=== PATIENT | female | born 1975 | race African-American/Black ===

== ENCOUNTER 2020-10-10 12:21 | Emergency (ER) | payer MEDICAID ==
[~2020-10-10] VITALS: Ht 165.1 cm; Wt 77.0 kg
[2020-10-10 12:33] VITALS: BP 141/88
[2020-10-10] MEDS ORDERED: ACET-2708 MT (13:36)
[2020-10-10] MEDS ORDERED: ALBU6.7H9 INH (13:36)
[2020-10-10] MEDS ORDERED: FLUT9.9S BOTHNSTRLS (13:39)
[2020-10-10] MEDS ORDERED: ACETAMINOPHEN 325MG TABLET PO ONE (13:45)
== END 2020-10-10 14:00 | disposition home or self-care (01) ==
LOC: ER 12:21
DX: H92.02 Otalgia, left ear (principal); J45.909 Unspecified asthma, uncomplicated; Z76.0 Encounter for issue of repeat prescription
CPT/HCPCS: 99283

== ENCOUNTER 2024-02-07 17:39 | Emergency (ER) | payer MEDICAID ==
[~2024-02-07] VITALS: Ht 167.6 cm; Wt 76.2 kg
[~2024-02-07 17:39] MED LIST: ACET-2708 MT; ALBU6.7H3 INH; FLUT9.9S BOTHNSTRLS
[2024-02-07 17:45] VITALS: O2SAT 100
[2024-02-07] MEDS: KETOROLAC 30MG/ML VIAL IM STA (19:39)
[2024-02-07 19:53] LABS: BASOPHILS % 0.5 % (0.0-2.0); DIFFERENTIAL COMMENT 0; EOSINOPHILS % 2.6 % (0.0-5.0); HEMATOCRIT. 32.2 % (36.0-48.0); HEMOGLOBIN. 10.1 g/dL (12.0-16.0); LYMPHOCYTES % 29.5 % (20.0-50.0); MEAN CORPUSCULAR HEMOGLOBIN 23.4 pg (28.0-32.0); MEAN CORPUSCULAR HGB CONC 31.4 g/dL (31.0-37.0); MEAN CORPUSCULAR VOLUME 74.3 fL (81.0-99.0); MEAN PLATELET VOLUME 9.1 fl (7.4-10.4); MONOCYTES % 8.9 % (2.0-8.0); NEUTROPHILS % 58.5 % (40.0-76.0); PLATELET 310 x1000/uL (130-400); RED BLOOD CELL COUNT 4.33 mill/uL (4.2-5.4); RED CELL DISTRIBUTION WIDTH 19.2 % (11.6-14.6); WHITE BLOOD COUNT 10.5 x1000/uL (4.5-11.0)
[2024-02-07 19:56] LABS: CHLORIDE 106 mEq/L (98-107); POTASSIUM 3.7 mEq/L (3.5-5.1); SODIUM 136 mEq/L (136-145)
[2024-02-07 19:57] LABS: CARBON DIOXIDE 24 mEq/L (21-32)
[2024-02-07 19:58] LABS: CALCIUM 9.3 mg/dL (8.7-10.4)
[2024-02-07 20:00] LABS: INR 0.9; PROTHROMBIN TIME 10.3 sec (9.6-11.0)
[2024-02-07 20:02] LABS: CREATININE 0.8 mg/dL (0.6-1.0); GLUCOSE 87 mg/dL (70-105)
[2024-02-07 20:03] LABS: UREA NITROGEN BLOOD 11 mg/dL (9-23)
[2024-02-07 20:06] LABS: HCG SCREEN NEGATIVE
[2024-02-07 20:07] LABS: T4 FREE 1.18 ng/dL (0.89-1.76); THYROID STIMULATING HORMONE 2.16 uIU/mL (0.55-4.78)
[2024-02-07] MEDS ORDERED: DIAZ5TAB MT (20:40)
[2024-02-07 21:03] VITALS: BP 146/79; PULSE 70; RESP 19; TEMP 36.66960; O2SAT 100
== END 2024-02-07 21:04 | disposition home or self-care (01) ==
LOC: ER 17:39
DX: M54.2 Cervicalgia (principal); Z79.899 Other long term (current) drug therapy
CPT/HCPCS: 80048; 84703; 84439; 84443; 85025; 85610; 36415; 72040; 96372; 99284; J1885; Z7610